=== PATIENT | female | born 1970 | race Caucasian/White ===

== ENCOUNTER 2018-09-02 08:22 | Day surgery (SDC) | payer OTHER | END 2018-09-02 16:35 | disposition home or self-care (01) | LOC: CIR.AMB 08:22 → CERTIFICAD 13:17 → CIR.AMB 13:50 | DX: N95.0 Postmenopausal bleeding (principal) ==

== ENCOUNTER → 2023-03-19 06:00 | Outpatient (CLI) | payer OTHER ==
[~2023-03-19] VITALS: Ht 162.6 cm; Wt 86.2 kg
[~2023-03-19 06:00] MED LIST: ZETIA10 MG PO
[2023-03-19 08:06] LABS: HEMATOCRIT 40.6 % (36.0-45.00); HEMOGLOBIN 14.2 g/dL (12.0-15.00); MEAN CELL VOLUME 85.8 fL (80.00-100.00); MEAN CORPUSCULAR HGB CONC 34.9 g/dl (32.0-36.0); PLATELET COUNT 343 K/uL (150-450); RED BLOOD COUNT 4.73 M/uL (4.00-6.00); RED CELL DISTRIBUTION WIDTH 15.3 % (11.5-14.5)
[2023-03-19 08:29] LABS: INR 1.01; PARTIAL THROMBOPLASTIN TIME 27.5 SECONDS (22.0-34.0); PROTHROMBIN TIME 10.6 SECONDS (9.0-11.5)
[2023-03-19 08:38] LABS: ALBUMIN 3.6 gm/dL (3.4-5.0); BILIRUBIN TOTAL 0.66 mg/dL (0.3-1.2); CALCIUM 9.3 mg/dL (8.5-10.1); CREATININE SERUM 0.67 mg/dL (0.55-1.02); GFR 92.07; GLOBULINA 3.4 G/DL (2.4-3.5); POTASSIUM 4.37 mEq/L (3.5-5.1)
[2023-03-19 09:13] LABS: PH,URINE 6.5 (5.0-8.0); URINE APPEARANCE Clear; URINE BILIRRUBIN Negative (NEGATIVE); URINE BLOOD Negative; URINE COLOR Yellow; URINE GLUCOSE Negative (NEGATIVE); URINE LEUKOCYTE Negative; URINE NITRATE Negative; URINE PROTEIN Negative (NEGATIVE); URINE UROBILINOGEN 0.2 E.U./dl
[2023-03-19 09:18] LABS: URINE BACTERIA 149.8 uL (0.0-1933); URINE EPITHELIAL CELLS 13.7 uL (0.0-38.8); URINE RBC 4.2 uL (0.0-20.8)
== END | disposition home or self-care (01) ==
LOC: LAB 06:00 → ADM 07:00 → CIR.AMB 03-26 07:00 → EDSTATUS 03-26 07:00 → CIR.AMB 03-26 11:00
PROVIDERS: ATTEND Specialist
DX: Z01.810 Encounter for preprocedural cardiovascular examination (principal); Z01.812 Encounter for preprocedural laboratory examination; Z01.811 Encounter for preprocedural respiratory examination; D50.9 Iron deficiency anemia, unspecified; E83.51 Hypocalcemia; D68.9 Coagulation defect, unspecified; N39.0 Urinary tract infection, site not specified; Z20.822 Contact with and (suspected) exposure to COVID-19; N85.00 Endometrial hyperplasia, unspecified